=== PATIENT | female | born 1995 | race American Indian/Alaskan Native ===

== ENCOUNTER 2018-09-10 17:48 | Emergency (ER) | payer SELFPAY ==
[2018-09-10 18:34] LABS: BASO % 0.2 % (0.0-1.0); EOS # 0.1 10^3/uL (0.0-0.50); EOS % 0.7 % (0.0-3.0); HEMATOCRIT 33.9 % (36.0-47.0); HEMOGLOBIN 11.4 g/dl (12.0-15.5); IMMATURE GRANULOCYTE % 0.7 % (0-3.0); LYMPH # 2.2 10^3/uL (1.5-6.5); MEAN CORPUSCULAR HEMOGLOBIN 30.2 pg (27.0-33.0); MEAN CORPUSCULAR HGB CONC 33.6 g/dl (32.0-36.5); MEAN CORPUSCULAR VOLUME 89.9 fl (80.0-96.0); MONO # 0.9 10^3/uL (0.0-0.8); MONO % 7.5 % (0.0-5.0); NEUTROPHILS # 8.9 10^3/uL (1.8-7.7); NEUTROPHILS % 72.9 % (36.0-66.0); PLATELET COUNT, AUTOMATED 282 10^3/uL (150-450); RED BLOOD COUNT 3.77 10^6/uL (4.00-5.40); RED CELL DISTRIBUTION WIDTH 13.7 % (11.5-14.5); WHITE BLOOD COUNT 12.2 10^3/uL (4.0-10.0)
[2018-09-10 18:38] LABS: KETONE, URINE AUTO RFX TRACE mg/dL (NEGATIVE); MUCUS, URINE RFX MODERATE (NEGATIVE); NITRITE, URINE AUTO RFX NEGATIVE (NEGATIVE); RBC, URINE AUTO RFX 4 /HPF (0-3); SPECIFIC GRAVITY UR AUTO RFX 1.018 (1.002-1.035); SQUAM EPITHELIAL CELL UR AURFX 2 /HPF (0-6)
[2018-09-10 18:39] LABS: LEUKOCYTE ESTERASE UR AUTO RFX 1+ (NEGATIVE); WBC, URINE AUTO RFX 29 /HPF (0-3)
[2018-09-10 18:46] LABS: PROTHROMBIN TIME 13.3 SECONDS (12.1-14.4)
[2018-09-10 18:47] LABS: CONTROL LINE HCG INT CTR LINE PRESENT; HCG, SERUM QUALITATIVE POSITIVE (NEGATIVE); PARTIAL THROMBOPLASTIN TIME 27.6 SECONDS (25.4-37.6)
[2018-09-10 18:57] LABS: ALBUMIN 3.4 GM/DL (3.2-5.2); ALBUMIN/GLOBULIN RATIO 0.85 (1.00-1.93); ALKALINE PHOSPHATASE 63 U/L (45-117); ALT/SGPT 27 U/L (12-78); AMYLASE 61 U/L (25-115); ANION GAP 8 MEQ/L (8-16); AST/SGOT 17 U/L (7-37); BILIRUBIN,DIRECT < 0.1 MG/DL (0.0-0.2); BILIRUBIN,TOTAL 0.3 MG/DL (0.2-1.0); BLOOD UREA NITROGEN 10 MG/DL (7-18); CALCIUM LEVEL 8.2 MG/DL (8.5-10.1); CARBON DIOXIDE LEVEL 24 MEQ/L (21-32); CHLORIDE LEVEL 106 MEQ/L (98-107); CREATININE FOR GFR 0.55 MG/DL (0.55-1.30); GLOMERULAR FILTRATION RATE > 60.0 (>60); GLUCOSE, FASTING 81 MG/DL (70-100); LIPASE 149 U/L (73-393); POTASSIUM SERUM 3.9 MEQ/L (3.5-5.1); SODIUM LEVEL 138 MEQ/L (136-145); TOTAL PROTEIN 7.4 GM/DL (6.4-8.2)
[2018-09-10 22:09] LABS: HCG, SERUM QUANTITATIVE 58842 MIU/ML
== END 2018-09-10 23:15 | disposition home or self-care (01) ==
LOC: M ED 17:48
DX: O23.31 Infections of other parts of urinary tract in pregnancy, first trimester (principal); Z3A.13 13 weeks gestation of pregnancy
CPT/HCPCS: 76801

== ENCOUNTER → 2018-10-22 | Outpatient (CLI) | payer SELFPAY ==
[2018-10-22 17:50] LABS: BASO # 0.1 10^3/uL (0.0-0.2); BASO % 0.5 % (0.0-1.0); EOS # 0.1 10^3/uL (0.0-0.50); EOS % 0.8 % (0.0-3.0); HEMATOCRIT 29.8 % (36.0-47.0); HEMOGLOBIN 9.8 g/dl (12.0-15.5); IMMATURE GRANULOCYTE % 0.4 % (0-3.0); LYMPH # 1.8 10^3/uL (1.5-6.5); MEAN CORPUSCULAR HEMOGLOBIN 29.9 pg (27.0-33.0); MEAN CORPUSCULAR HGB CONC 32.9 g/dl (32.0-36.5); MEAN CORPUSCULAR VOLUME 90.9 fl (80.0-96.0); MONO # 0.7 10^3/uL (0.0-0.8); MONO % 7.1 % (0.0-5.0); NEUTROPHILS # 7.5 10^3/uL (1.8-7.7); NEUTROPHILS % 73.2 % (36.0-66.0); PLATELET COUNT, AUTOMATED 317 10^3/uL (150-450); RED BLOOD COUNT 3.28 10^6/uL (4.00-5.40); WHITE BLOOD COUNT 10.2 10^3/uL (4.0-10.0)
[2018-10-22 23:10] LABS: CHLAMYDIA DNA AMPLIFICATION NEGATIVE (NEGATIVE); GC DNA AMPLIFICATION NEGATIVE (NEGATIVE)
[2018-10-24 13:58] LABS: HBsAg Prenatal NEGATIVE (NEGATIVE); HIV 1&2 SCREEN CENTAUR NEGATIVE (NEGATIVE); RUBELLA IgG QUALITATIVE IMMUNE (IMMUNE)
[2018-10-24 13:58] LABS: HEPATITIS C VIRUS ABY INDEX 0.1 INDEX (<0.8)
== END ==
LOC: M SMT 15:28
DX: Z34.82 Encounter for supervision of other normal pregnancy, second trimester (principal); Z3A.19 19 weeks gestation of pregnancy
CPT/HCPCS: 86762

== ENCOUNTER → 2018-11-14 | Outpatient (CLI) | payer OTHER ==
[~2018-11-14] MED LIST: MACR100C43 PO
--- NOTE | 2018-11-14 17:21 | REP ---
Clinical: Anatomical evaluation. Comparison: 09/10/2018 . Findings: Examination demonstrates a single live intrauterine in cephalic presentation. motion is identified by technologist. Placenta is noted an anterior and grade grade zero without evidence for placenta previa or abruption. Amniotic fluid volume is normal. Cervix measures 5.0 cm in length and appears closed. No evidence for nuchal cord. Gestational age by LMP 23 weeks 1 day with KELL 03/12/2019 . Gestational age by current measurements 23 weeks 0 days with KELL 03/13/2019 . FHR equals 136 beats per minute. BPD 5.7 cm 23 weeks 3 days HC 21.8 cm 23 weeks 6 days AC 18.6 cm 23 weeks 3 days FL 4.0 cm 22 weeks 6-day HL 3.8 cm 23 weeks 3-day HC/AC ratio 1.17 Estimated weight 577 grams ( 50th percentile). Anatomical assessment demonstrates normal structures including cranium, choroid plexus, cavum, cerebellum/posterior fossa, facial features, lungs, four-chamber heart/ventricular outflow tracts, diaphragm, stomach, cord insertion/three-vessel cord, kidneys/bladder, spine, and extremities. Impression: Single live intrauterine in cephalic presentation demonstrating appropriate interval growth. Anatomical assessment is complete and within normal limits. Electronically Signed by Mark Diane MD 11/14/2018 05:12 P
== END ==
LOC: M RAD 10:25
PROVIDERS: ATTEND Advanced Practice Midwife
DX: Z34.82 Encounter for supervision of other normal pregnancy, second trimester (principal); Z3A.19 19 weeks gestation of pregnancy

== ENCOUNTER 2019-03-18 08:41 | Inpatient (IN) | payer OTHER ==
[2019-03-18] VITALS (34 sets, daily range): BP systolic 85–137; BP diastolic 50–89
[~2019-03-18] VITALS: Ht 154.9 cm; Wt 67.1 kg
[2019-03-18] MEDS ORDERED: IRON65TA2 PO (09:04)
[2019-03-18] MEDS ORDERED: PRENTAB9 PO (09:04)
[2019-03-18] MEDS ORDERED: VITA100T59 PO (09:04)
[2019-03-18] MEDS ORDERED: LACTATED RINGER'S 1000 ML IV STA (10:18)
[2019-03-18] MEDS: LR 1,000 ML IV SCH ×3 (11:05→16:33)
[2019-03-18 11:06] LABS: HEMATOCRIT 35.2 % (36.0-47.0); HEMOGLOBIN 11.4 g/dl (12.0-15.5); MEAN CORPUSCULAR HGB CONC 32.4 g/dl (32.0-36.5); MEAN CORPUSCULAR VOLUME 86.5 fl (80.0-96.0); PLATELET COUNT, AUTOMATED 256 10^3/uL (150-450); RED BLOOD COUNT 4.07 10^6/uL (4.00-5.40); WHITE BLOOD COUNT 12.3 10^3/uL (4.0-10.0)
[2019-03-18] MEDS ORDERED: FENTANYL 2MCG/ML ROPIVACAINE 0.2% IN 0.9% NACL 100ML IVBAG As Ordered ONE (12:03)
--- NOTE | 2019-03-18 12:33 | HPEPDOC ---
Obstetrical History & Physical General Date of Admission Mar 18, 2019 at 10:16 History of Present Illness 23 y/o at 40+6 with painful reg ctx's. No LOF, some mucousy blood tinged D/C. Pos FM. Preg c/b late entry to care, not seen here until 31 weeks, prior had only an US at 13 weeks, anatomy scan done at [facility] 19DEC Chief Complaint: Contractions, term Information Provided By: Patient Care Care: Limited Care Dating Final EDC by: LMP (13 wk US) Past Medical History Past Obstetrical History : Past Obstetrical History: Primgravida Past Medical History Surgical History: Denies/None Family History Significant Family History: No pertinent family hx Social History Marital Status: Family situation: Spouse/partner home Psychosocial History: No pertinent psych hx * Smoker: non-smoker Alcohol: Denies Drugs: denies Abuse Violence Screening Have you been hit/kicked/slapp: No Have you been sexually assault: No Imunizations Tdap status: declined Influenza Status: current Allergies Coded Allergies: No Known Allergies (Unverified , 09/10/18) Medications Scheduled Ascorbic Acid (Vitamin C) 100 Mg Tablet, 1 TAB PO DAILY Ferrous Sulfate (Iron) 325 Mg Tablet, 1 TAB PO DAILY No.137/Iron/Folic Acd ( Vitamin Tablet) 1 Each Tablet, 1 TAB PO DAILY Physical Examination Physical Examination GENERAL: Alert and oriented times three. ABDOMEN: Gravid and non-tender to touch. FETUS: Is vertex (VTX) by sterile vaginal examination (SVE), at 1000 was 4/90/- 1/vtx well applied EXTREMITIES: No edema. Vital Signs/I&O Vital Signs Date Time Temp Pulse Resp B/P (MAP) Pulse Ox O2 Delivery O2 Flow Rate FiO2 03/18/19 11:58 99.5 88 20 97 Room Air Laboratory Data 24H LABS Laboratory Tests 2 03/18/19 10:22: Serology Scanned Report Hepatitis B Testing 03/18/19 10:42: Nucleated Red Blood Cells % (auto) 0.0 CBC/BMP Laboratory Tests 03/18/19 10:42 Red Blood Count 4.07, Mean Corpuscular Volume 86.5, Mean Corpuscular Hemoglobin 28.0, Mean Corpuscular Hemoglobin Concent 32.4, Red Cell Distribution Width 20.4 H Urine Culture: No Growth Pertinent Laboratoy Data Blood Type: A+ RBC Antibody Screen: Negative HIV: Negative Hepatitis B: Negative Hepatitis C: Negative Rapid Plasma Reagin: Nonreactive Rubella: Immune Varicella: Immune Chlamydia/Gonorrhea: Negative Group B Streptococcus: Negative Quad Screen Test: Declined Cystic Fibrosis: Negative Anatomy Ultrasound Placenta Location: Anterior Normal Anatomy: Yes Placenta Previa: No Assessment Variability: Moderate Accelerations: Positive Decelerations: None Tocometer Contractions: Yes Frequency: regular Duration: greater than 60 seconds Strength: palpated as strong Assessment/Plan Assessment Active labor. Now requesting an epidural. RN just did a recheck and said was still 4 cm but now +1, my exam at 1000 was -1. Plan on recheck in a few hours after epidural and she achieves some rest. Plan Admit and orient. Recreation Activities Coordinator and consent. Diet: clr Group B Streptococcus (GBS) neg Labs and intravenous (IV) per unit protocol. Counseled on Pitocin and induction of labor (IOL). Lactated Ringers (LR): Bolus 1000 mL, then at 125 mL/hr. Anticipate normal spontaneous delivery () C-S as appropriate. Sessions MD WILSON,NATHAN Hernández MD Mar 18, 2019 12:33
[2019-03-18] MEDS ORDERED: ONDANSETRON 4MG/2ML VIAL (J2405) IV PRN (13:45)
[2019-03-18] MEDS ORDERED: REFRIGERATOR IV KEYS XX PRN (13:45)
[2019-03-18] MEDS ORDERED: EPIDURAL COMMENT XX SCH (13:45)
[2019-03-18] MEDS ORDERED: EPIDURAL/PCA KEYS XX PRN (13:45)
[2019-03-18] MEDS ORDERED: diphenhydrAMINE INJ 50MG/ML VIAL (J1200) IV PRN (13:45)
[2019-03-18] MEDS ORDERED: NALOXONE INJ 0.4 MG/1 ML VIAL (J2310) IV PRN (13:45)
[2019-03-18] MEDS ORDERED: FENTANYL/ROPIVACAINE/NACL BAG 100 ML EPIDURAL SCH (13:45)
[2019-03-18] MEDS ORDERED: LACTATED RINGER'S 1000 ML IV PRN (13:45)
[2019-03-18] MEDS: ePHEDrine SULFATE 25 MG/5 ML(5MG/ML) SYRINGE IV PRN ×3 (13:48→13:57)
[2019-03-18] MEDS ORDERED: ePHEDrine SULFATE 25 MG/5 ML(5MG/ML) SYRINGE IV PRN (16:30)
[2019-03-18] MEDS ORDERED: ACETAMINOPHEN TAB 650MG DOSE (2X325MG) PO ONE (18:00)
--- NOTE | 2019-03-18 18:13 | IPNPDOC ---
Text Note Date of Service The patient was seen on 03/18/19. NOTE RN has kept me abreast of progress SROM this afternoon Epidural placed and had some late decels from BP issues, treated with ephedrine several times Cx change also throughout the afternoon, was 8 cm at 1600 NST now Cat 2 with accels, mod aditya, some possible late/variables intermittently Cx with a small but slightly swollen ant lip reduced with a few pushes, MARY, +2 station Pushing. Will recheck in 1 hour. Sessions VS,Bess, I+O VSBess I+O Laboratory Tests 03/18/19 10:42 Red Blood Count 4.07, Mean Corpuscular Volume 86.5, Mean Corpuscular Hemoglobin 28.0, Mean Corpuscular Hemoglobin Concent 32.4, Red Cell Distribution Width 20.4 H Vital Signs Date Time Temp Pulse Resp B/P (MAP) Pulse Ox O2 Delivery O2 Flow Rate FiO2 03/18/19 14:56 99.4 101 20 109/64 (79) 03/18/19 11:58 97 Room Air SESSIONS,NATHAN Hernández MD Mar 18, 2019 18:13
[2019-03-18] MEDS ORDERED: OXYTOCIN DRIP 30 UNITS in APPROPRIATE DILUENT 1 EA IV SCH (19:14)
[2019-03-18] MEDS ORDERED: ACETAMINOPHEN TAB 650MG DOSE (2X325MG) PO PRN (19:15)
[2019-03-18] MEDS ORDERED: DIBUCAINE 1% OINTMENT 30GM TOP PRN (19:15)
[2019-03-18] MEDS ORDERED: IBUPROFEN 800 MG TAB PO PRN (19:15)
[2019-03-18] MEDS ORDERED: RHOGAM 300 MCG (1500 IU) INJ (J2790) IM SCH (19:15)
[2019-03-18] MEDS ORDERED: MEASLES,MUMPS,RUBELLA VACCINE INJ (MMR-II) (90707) SC SCH (19:15)
[2019-03-18] MEDS ORDERED: METOCLOPRAMIDE INJ 10MG/2ML VIAL (J2765) IV PRN (19:15)
--- NOTE | 2019-03-18 19:28 | DNPDOC ---
[facility] Delivery Note Delivery Note DATE OF DELIVERY: [id number] PREDELIVERY DIAGNOSIS: 40 6/7 weeks' gestation and labor. POST DELIVERY DIAGNOSIS: Delivered. PROCEDURE: Spontaneous vaginal delivery HANDLE MACHINE OPERATOR: Dr. Wilson ANESTHESIA: epidural ESTIMATED BLOOD LOSS: 200 mL. FINDINGS: 7 pound 8 ounce male , Score 8/9, nuchal cord times 1, loose and not reduced. DELIVERY SUMMARY: Pushed very well, <1 hr. Right before delivery had an oral Temp >100.4, but no tachycardia ever, therefore no dx of chorio. Del'd the vtx ROP with mod'd ritgen assist, rotated to ROT. Loose nuchal noted but ant shoulder del'd before I could reduce it. Vigorous to abd. Good tone and cry. Cord C/C. Cord blood. Placenta del'd intact, fundus firm with pit going 999 and massage. Two small lacs to right inner labia and post vagina both closed with 3-0 vicryl, per and cx intact. Uncomplicated. Tiffany WILSON,NATHAN Hernández MD Mar 18, 2019 19:28
[2019-03-18] MEDS: DOCUSATE SODIUM 100 MG CAP PO SCH (21:45)
[2019-03-19 06:00] VITALS: BP 108/62
--- NOTE | 2019-03-19 06:03 | IPNPDOC ---
Text Note Date of Service The patient was seen on 03/19/19. NOTE PPD1 States feeling well, pain controlled with prescribed meds. Baby bonding and feeding well. No heavy VB. Lochia slowing. Ambulatory. Tolerating PO without issues. Voiding spont. No CP/LP. VSSAF NAD A&O LE no C/C/E Ut at U-1, firm a/p: Doing well. Cont routine care. D/C likely tomorrow. Sessions Bess PINEDA, I+O Bess PICHARDO I+O Laboratory Tests 03/18/19 10:42 Red Blood Count 4.07, Mean Corpuscular Volume 86.5, Mean Corpuscular Hemoglobin 28.0, Mean Corpuscular Hemoglobin Concent 32.4, Red Cell Distribution Width 20.4 H Vital Signs Date Time Temp Pulse Resp B/P (MAP) Pulse Ox O2 Delivery O2 Flow Rate FiO2 03/18/19 21:40 99.3 110 16 116/68 (84) 97 03/18/19 11:58 Room Air I&O- Last 24 Hours up to 6 AM 03/19/19 06:00 Intake Total 2956.3 ml Output Total 1125 ml Balance 1831.3 ml SESSIONS,NATHAN Hernández MD Mar 19, 2019 06:03
[2019-03-19] MEDS ORDERED: ADACEL/BOOSTRIX VACCINE (DIPHTH/PERTUSS/ACELL/TETANUS)0.5ML SYR (90715) IM ONE (09:00)
[2019-03-19] MEDS: DOCUSATE SODIUM 100 MG CAP PO SCH ×2 (09:40→21:54)
[2019-03-19] MEDS: PRENATAL VITAMINS CHEWABLE TABLET PO SCH (09:40)
[2019-03-19 10:00] VITALS: BP 112/70
[2019-03-19 18:01] VITALS: BP 111/70
[2019-03-20 06:13] VITALS: BP 113/67
[2019-03-20] MEDS ORDERED: IBUP-1114 PO (07:53)
[2019-03-20] MEDS ORDERED: PRENTAB9 PO (07:53)
[2019-03-20] MEDS ORDERED: COLA100C5 PO (07:53)
[2019-03-20] MEDS ORDERED: NUPE10OI TOP (07:53)
[2019-03-20] MEDS: PRENATAL VITAMINS CHEWABLE TABLET PO SCH (10:13)
[2019-03-20] MEDS: DOCUSATE SODIUM 100 MG CAP PO SCH (10:13)
--- NOTE | 2019-03-21 09:37 | DSES ---
DATE OF ADMISSION: 03/18/2019 DATE OF DISCHARGE: 03/20/2019 23-year-old, 1, now para 1, admitted at 46 weeks of gestation with contractions and had spontaneous vaginal delivery live male , 7 pounds 8 ounces, score of 8 and 9 at one and five minutes respectively. On her second day, we discussed phlebitis, cystitis, mastitis, endometritis and cellulitis, diet, exercise, pain management, perineal, breast and wound care. Admitting hemoglobin 11.4, hematocrit 35.2 and platelets were 256. Vital signs on discharge: Blood pressure 113/67, respirations 16, pulse 70, temperature is 98.4. The rest examination is unremarkable. Normocephalic, atraumatic. Neck full range of motion. Pupils equal and reactive to light. Distal pulses symmetric. No evidence of deep venous thrombosis (DVT), pulmonary embolism (PE), or superficial phlebitis. Chest is clear bilaterally at bases. No wheezes or rhonchi. No costovertebral angle (CVA) tenderness. Abdomen soft. Uterus 2 below. Lochia is moderate. Four quadrant bowel sounds are noted. Perineum is intact. She has no rashes, lesions or pruritus. No arthralgia, myalgia. No complaint joint pain. No cough, wheeze, shortness of breath or dyspnea on exertion. She has no incontinence, urgency or frequency. No nausea, vomiting, diarrhea or constipation. In summary, we have a term gestation delivered a live male . Plan: Discharge medications dispensed at discharge and 6-week checkup at [facility], at which time, control will be discussed. All questions were answered.
== END 2019-03-20 12:25 | disposition home or self-care (01) | DRG 807 ==
LOC: M LDO 08:41 → M LDI 10:16 → M OBS 21:07
PROVIDERS: ADMIT Obstetrics & Gynecology; ATTEND Obstetrics & Gynecology
PROC: 10E0XZZ Delivery of Products of Conception, External Approach (ICD-10-PCS; principal; 2019-03-18)
PROC: 0HQ9XZZ Repair Perineum Skin, External Approach (ICD-10-PCS; 2019-03-18)
DX: O48.0 Post-term pregnancy (principal); Z37.0 Single live birth; O09.31 Supervision of pregnancy with insufficient antenatal care, first trimester; O09.32 Supervision of pregnancy with insufficient antenatal care, second trimester; O09.33 Supervision of pregnancy with insufficient antenatal care, third trimester; Z3A.40 40 weeks gestation of pregnancy; O69.82X0 Labor and delivery complicated by other cord entanglement, without compression, not applicable or unspecified; O70.0 First degree perineal laceration during delivery

== ENCOUNTER 2019-10-12 16:20 | Emergency (ER) | payer OTHER ==
[~2019-10-12] VITALS: Ht 154.9 cm; Wt 52.6 kg
[~2019-10-12 16:20] MED LIST changes: +COLA100C5 PO; +IBUP-1114 PO; +IRON65TA2 PO; +NUPE10OI TOP; +PRENTAB9 PO; +VITA100T59 PO
[2019-10-12 16:21] VITALS: BP 114/67
[2019-10-12] MEDS ORDERED: LIDOCAINE 1% MDV 20ML VIAL SC ONE (17:15)
== END 2019-10-12 17:51 | disposition home or self-care (01) ==
LOC: M ED 16:20
DX: O99.712 Diseases of the skin and subcutaneous tissue complicating pregnancy, second trimester (principal); T16.2XXA Foreign body in left ear, initial encounter

== ENCOUNTER 2020-06-02 21:34 | Inpatient (IN) | payer OTHER ==
[~2020-06-02] VITALS: Ht 154.9 cm; Wt 67.3 kg
[2020-06-02 22:13] LABS: HEMOGLOBIN 12.2 g/dl (12.0-15.5); MEAN CORPUSCULAR HEMOGLOBIN 27.8 pg (27.0-33.0); MEAN CORPUSCULAR HGB CONC 32.1 g/dl (32.0-36.5); MEAN CORPUSCULAR VOLUME 86.6 fl (80.0-96.0); PLATELET COUNT, AUTOMATED 220 10^3/uL (150-450); RED BLOOD COUNT 4.39 10^6/uL (4.00-5.40); WHITE BLOOD COUNT 13.7 10^3/uL (4.0-10.0)
--- NOTE | 2020-06-02 22:17 | HPEPDOC ---
Obstetrical History & Physical General Date of Admission Jun 02, 2020 at 21:51 History of Present Illness Mrs. Tatum is a 25-year-old 2, para 1 presents at 40 weeks 3 days estimated gestational age by first trimester ultrasound, complaints of contractions. She reports active movements. Denies any vaginal bleeding or leakage fluid. course has been unremarkable. She initiated care first trimesters been appropriate throughout. Chief Complaint: Contractions, term Information Provided By: Patient Age: 25 : 2 Livin Care Care: Good Care Dating Final EDC: May 30, 2020 Final EDC by: 1st trimester (US) EGA at Admission: 40 Past Medical History Past Obstetrical History : Past Obstetrical History: Multigravida Date of Delivery: Mar 18, 2009 Type of Delivery: Spontaneous Vaginal Del. Sex of : Male Past Medical History Surgical History: Denies/None Family History Significant Family History: No pertinent family hx Social History Marital Status: Family situation: Spouse/partner home Psychosocial History: No pertinent psych hx * Smoker: non-smoker Alcohol: Denies Drugs: denies Allergies Coded Allergies: No Known Allergies (Unverified , 09/10/18) Medications Scheduled No.137/Iron/Folic Acd ( Vitamin Tablet) 1 Each Tablet, 1 TAB PO DAILY Physical Examination Physical Examination GENERAL: Alert and oriented times three. BREAST: . ABDOMEN: Gravid and non-tender to touch. FETUS: Is vertex (VTX) by sterile vaginal examination (SVE), fetus is vertex (VTX) by Rodney. HEART RATE: Regular rate and rhythm. LUNGS: Clear to auscultation (CTA). Pertinent Laboratoy Data Blood Type: A+ RBC Antibody Screen: Negative HIV: Negative Rapid Plasma Reagin: Nonreactive Rubella: Immune Chlamydia/Gonorrhea: Negative Group B Streptococcus: Negative Anatomy Ultrasound Ultrasound Date: Jan 28, 2020 Placenta Location: Anterior Normal Anatomy: Yes Vaginal Examination Dilation: 5 cm Effacement: 80% Station: -2 Cervical Consistency: Soft Cervical Position: Middle Presentation: Cephalic presentation Assessment Variability: Moderate Accelerations: Positive Tocometer Contractions: Yes Frequency: regular Assessment/Plan Assessment 25-year-old 2, para 1 at 40 weeks and 3 days estimated gestational age here in active labor. Reassuring status Plan Admit and orient. Apprentice Carpenter and consent. Group B Streptococcus (GBS) negative. Labs and intravenous (IV) per unit protocol. Counseled on Pitocin and induction of labor (IOL). Anticipate normal spontaneous delivery (). C-S as appropriate. JEREMI PATEL MD. Jun 02, 2020 22:17
[2020-06-02] MEDS ORDERED: FENTANYL 2MCG/ML ROPIVACAINE 0.2% IN 0.9% NACL 100ML IVBAG As Ordered ONE (22:41)
[2020-06-02] MEDS ORDERED: EPIDURAL COMMENT XX SCH (22:50)
[2020-06-02] MEDS ORDERED: diphenhydrAMINE 50MG/ML VIAL (J1200) IV PRN (22:50)
[2020-06-02] MEDS ORDERED: FENTANYL/ROPIVACAINE/NACL BAG 100 ML EPIDURAL SCH (22:50)
[2020-06-02] MEDS ORDERED: LACTATED RINGER'S 1000 ML IV PRN (22:50)
[2020-06-02] MEDS ORDERED: NALOXONE INJ 0.4MG/1ML VIAL (J2310 PER 1MG) IV PRN (22:50)
[2020-06-02] MEDS ORDERED: ePHEDrine SULFATE 25 MG/5 ML(5MG/ML) SYRINGE IV PRN (22:50)
[2020-06-02] MEDS ORDERED: EPIDURAL/PCA KEYS XX PRN (22:50)
[2020-06-02] MEDS ORDERED: REFRIGERATOR IV KEYS XX PRN (22:50)
[2020-06-02] MEDS ORDERED: ONDANSETRON 4MG/2ML VIAL IV PRN (22:50)
[2020-06-02] MEDS ORDERED: OXYTOCIN 30 UNITS IN 0.9% NaCl 500ML IV BAG (J2590) As Ordered ONE (23:39)
[2020-06-02] MEDS ORDERED: ePHEDrine SULFATE 25 MG/5 ML(5MG/ML) SYRINGE As Ordered ONE (23:47)
--- NOTE | 2020-06-03 01:11 | DNPDOC ---
[facility] Delivery Note Delivery Note DATE OF DELIVERY: 06/03/2020 TIME OF : 0045 GENDER: Female. APGARS: 9 and 9. WEIGHT: 4150 grams or 9 pounds 2 ounces. LACERATIONS: None ANESTHESIA: Epidural. ESTIMATED BLOOD LOSS: 300ml COUNTS: 5 laparotomy sponges accounted for prior to after delivery. DELIVERY NOTE: On 06/03/2020 at 00 45, , had a spontaneous vaginal delivery of viable female infant, Apgars 9 and 9. Weight was, 4150 g or 9 lbs. 2 oz. Head was delivered occiput posterior (OP), followed by delivery of the shoulders and corpus. Infant was handed to mom with a good cry. Cord was clamped times two and was cut by the father of baby under my direction. Placenta was then drained and delivered grossly intact. A premixed bag of 500 mL of normal saline with 30 units of Pitocin was then bolused along with uterine massage until the uterus was firm. On inspection, cervix, vagina, perineum was grossly intact and hemostatic. Mom and baby in recovery on stable condition. JEREMI PATEL MD. Jun 03, 2020 01:11
[2020-06-03] MEDS ORDERED: ACETAMINOPHEN TAB 650MG DOSE (2X325MG) PO PRN (01:15)
[2020-06-03] MEDS ORDERED: ANUSOL HC CREAM 30GM TOP PRN (01:15)
[2020-06-03] MEDS ORDERED: DIBUCAINE 1% OINTMENT 30GM TOP PRN (01:15)
[2020-06-03] MEDS ORDERED: IBUPROFEN 600MG TAB PO PRN (01:15)
[2020-06-03] MEDS ORDERED: METHYLERGONOVINE MALEATE 0.2 MG TAB PO PRN (01:15)
[2020-06-03] MEDS ORDERED: DOCUSATE SODIUM 100 MG CAP PO PRN (01:15)
[2020-06-03] MEDS ORDERED: IBUPROFEN 800 MG TAB PO PRN (01:15)
[2020-06-03] MEDS ORDERED: MOM 30ML SUSPENSION UDC PO PRN (01:15)
[2020-06-03] MEDS ORDERED: OXYTOCIN INJ 10 UNITS/ML VIAL (J2590) IM ONE (01:15)
[2020-06-03] MEDS ORDERED: RHOGAM 300 MCG (1500 IU) INJ (J2790) IM SCH (01:15)
[2020-06-03] MEDS ORDERED: MEASLES,MUMPS,RUBELLA VACCINE INJ (MMR-II) (90707) SC SCH (01:15)
[2020-06-03 03:19] VITALS: BP 112/70
[2020-06-03 05:29] VITALS: BP 109/65
[2020-06-03] MEDS: PRENATAL VITAMINS CHEWABLE TABLET PO SCH (10:26)
[2020-06-03] MEDS: ACETAMINOPHEN 500 MG TAB PO PRN (11:44)
[2020-06-03 18:00] VITALS: BP 99/59
[2020-06-04 05:38] VITALS: BP 103/57
[2020-06-04] MEDS: PRENATAL VITAMINS CHEWABLE TABLET PO SCH (08:23)
[2020-06-04] MEDS: ACETAMINOPHEN 500 MG TAB PO PRN (08:24)
== END 2020-06-04 14:15 | disposition home or self-care (01) | DRG 807 ==
LOC: M LDO 21:34 → M LDI 21:51 → M OBS 06-03 03:06
PROVIDERS: ADMIT Obstetrics & Gynecology; ATTEND Obstetrics & Gynecology
PROC: 10E0XZZ Delivery of Products of Conception, External Approach (ICD-10-PCS; principal; 2020-06-03)
DX: O48.0 Post-term pregnancy (principal); Z37.0 Single live birth; Z3A.40 40 weeks gestation of pregnancy

== ENCOUNTER 2021-05-21 13:57 | Outpatient (CLI) | payer OTHER, SELFPAY ==
[~2021-05-21] VITALS: Ht 154.9 cm; Wt 65.7 kg
[2021-05-21 14:13] VITALS: BP 100/63
[2021-05-21] MEDS ORDERED: VALT1TAB PO (14:20)
[2021-05-21] MEDS ORDERED: HOME MED LIST COMPLETE! XX SCH (14:25)
[2021-05-21 17:46] VITALS: BP 107/68
== END 2021-05-21 17:50 | disposition home or self-care (01) ==
LOC: M LDO 13:57
PROVIDERS: ATTEND Registered Nurse
DX: O9A.213 Injury, poisoning and certain other consequences of external causes complicating pregnancy, third trimester (principal); Z3A.38 38 weeks gestation of pregnancy; S30.1XXA Contusion of abdominal wall, initial encounter; X58.XXXA Exposure to other specified factors, initial encounter; Y92.9 Unspecified place or not applicable
CPT/HCPCS: 59025; 76815; G0378; G0463

== ENCOUNTER 2021-05-23 03:55 | Inpatient (IN) | payer OTHER ==
[~2021-05-23] VITALS: Ht 154.9 cm; Wt 69.0 kg
[2021-05-23] VITALS (28 sets, daily range): BP systolic 89–197; BP diastolic 51–134
[~2021-05-23 03:55] MED LIST changes: +VALT1TAB PO
[2021-05-23] MEDS ORDERED: OXYTOCIN INJ 10 UNITS/ML VIAL (J2590) IV PRN (04:15)
[2021-05-23] MEDS ORDERED: LACTATED RINGER'S 1000 ML IV ONE (04:15)
[2021-05-23] MEDS ORDERED: LR 1,000 ML IV SCH (04:15)
[2021-05-23 04:42] LABS: HEMATOCRIT 37.9 % (36.0-47.0); HEMOGLOBIN 12.6 g/dl (12.0-15.5); MEAN CORPUSCULAR HEMOGLOBIN 29.9 pg (27.0-33.0); MEAN CORPUSCULAR HGB CONC 33.2 g/dl (32.0-36.5); PLATELET COUNT, AUTOMATED 218 10^3/uL (150-450); RED BLOOD COUNT 4.21 10^6/uL (4.00-5.40); WHITE BLOOD COUNT 12.3 10^3/uL (4.0-10.0)
[2021-05-23] MEDS ORDERED: OXYTOCIN DRIP 30 UNITS in IV 1 EA IV PRN (05:00)
[2021-05-23] MEDS ORDERED: FENTANYL 2MCG/ML ROPIVACAINE 0.2% IN 0.9% NACL 100ML IVBAG As Ordered ONE (05:04)
[2021-05-23] MEDS ORDERED: ONDANSETRON 4MG/2ML VIAL IV PRN (05:08)
[2021-05-23] MEDS ORDERED: FENTANYL/ROPIVACAINE/NACL BAG 100 ML EPIDURAL SCH (05:08)
[2021-05-23] MEDS ORDERED: ePHEDrine SULFATE 25 MG/5 ML(5MG/ML) SYRINGE IV PRN (05:08)
[2021-05-23] MEDS ORDERED: LACTATED RINGER'S 1000 ML IV PRN (05:08)
[2021-05-23] MEDS ORDERED: NALOXONE INJ 0.4MG/1ML VIAL (J2310 PER 1MG) IV PRN (05:08)
[2021-05-23] MEDS ORDERED: EPIDURAL COMMENT XX SCH (05:08)
[2021-05-23] MEDS ORDERED: diphenhydrAMINE 50MG/ML VIAL (J1200) IV PRN (05:08)
[2021-05-23] MEDS ORDERED: EPIDURAL/PCA KEYS XX PRN (05:08)
[2021-05-23] MEDS ORDERED: REFRIGERATOR IV KEYS XX PRN (05:08)
--- NOTE | 2021-05-23 05:40 | HPEPDOC ---
Obstetrical History & Physical General Date of Admission May 23, 2021 at 04:10 Primary Care Physician: Darnell Francois MD History of Present Illness ACTIVE LABOR AT 38 WEEKS 2 DAYS HISTORY OF SHORT INTERVAL , HSV POSITIVE BLOOD NEGATIVE CULTURE . TAKING MEDICATION ONLY 2 DAYS NOW. NO RUPTURED MEMBRANES NO SHOW Chief Complaint: Contractions, term Information Provided By: Patient Age: 25 : 3 Term: 2 Pre-term: 0 Abortions: 0 Livin Care Care: Good Care Number of Visits: 8 Dating Final EDC: Jun 03, 2021 Final EDC for Daily Update: Jun 03, 2021 Final EDC by: LMP LMP: Aug 27, 2020 1st Trimester Date: Dec 17, 2020 Weeks + Days: 16.6 Estimated Date of Confinement: Jun 03, 2021 EGA at Admission: 38.2 Antepartum Course Diagnos(e)s ACTIVE LABOR AT TERM Height (inches): 61 Pre- weight (lbs.): 122 Admission Weight (lbs.): 145 Change in Weight (lbs.): 23 Past Medical History Past Obstetrical History #1: Past Obstetrical History: Multigravida Date of Delivery: Mar 18, 2019 Gestation: 40.6 Type of Delivery: Spontaneous Vaginal Del. Sex of : Male Weight of (grams): 3401.9 Complications: No Past Obstetrical History #2: Past Obstetrical History: Multigravida Date of Delivery: Jun 03, 2020 Gestation: 41 Type of Delivery: Spontaneous Vaginal Del. Sex of Infant: Female Weight of Infant (grams): 4139.03 Complications: No HEALTH CARE SANITARY TECHNICIAN History: No pertinent history, Other (UTI) Past Medical History Surgical History: Denies/None Family History Significant Family History: No pertinent family hx Social History Social history ACTIVE DUTY NO VIOLENCE Marital Status: Family situation: Spouse/partner home Psychosocial History: No pertinent psych hx * Smoker: non-smoker Alcohol: Denies Drugs: denies Abuse Violence Screening Have you been hit/kicked/slapp: No Have you been sexually assault: No Imunizations Tdap status: current Influenza Status: current Allergies Coded Allergies: No Known Allergies (Unverified , 09/10/18) Medications Scheduled No.137/Iron/Folic Acd ( Vitamin Tablet) 1 Each Tablet, 1 TAB PO DAILY Valacyclovir HCl (Valtrex) 1,000 Mg Tablet, 1 TAB PO BID Physical Examination Physical Examination GENERAL: Alert and oriented times three. BREAST: . ABDOMEN: Gravid and non-tender to touch. FETUS: Is vertex (VTX) by sterile vaginal examination (SVE), fetus is vertex (VTX) by Rodney. HEART RATE: Regular rate and rhythm. LUNGS: Clear to auscultation (CTA). EXTREMITIES: No edema. No clonus. Deep tendon reflexes (DTRs) + . Other physical findings SPECULUM EXAMINATION NO ACTIVE LESIONS SEEN CULTURE TAKEN Pertinent Laboratoy Data Blood Type: A+ RBC Antibody Screen: Negative HIV: Negative Hepatitis B: Negative Rapid Plasma Reagin: Nonreactive Rubella: Immune Varicella: Immune Chlamydia/Gonorrhea: Negative Group B Streptococcus: Negative Cystic Fibrosis: Negative Glucose Tolerance Test: 131 Anatomy Ultrasound Ultrasound Date: Feb 11, 2021 Placenta Location: Anterior Normal Anatomy: Yes Placenta Previa: No Estimated Weight (grams): 1350 Steroid Therapy Steroid Therapy: No Vaginal Examination Dilation: 6 cm Effacement: 80% Station: -3 Cervical Consistency: Soft Cervical Position: Middle Presentation: Cephalic presentation Position: Vertex (occiput) Assessment Variability: Moderate Accelerations: Positive Decelerations: None Tocometer Contractions: Yes Frequency: regular, every 1-3 min. Duration: less than 60 seconds Strength: palpated as moderate Assessment/Plan Assessment 25-year-old (G)3 para 2 at 38.2 weeks by 16.6 -week ultrasound. Presents to Labor and Delivery (L&D) . Plan Admit and orient. Heel Sprayer First and consent. Diet: NPO Group B Streptococcus (GBS) [negative]. Labs and intravenous (IV) per unit protocol. Counseled on Pitocin and induction of labor (IOL). Lactated Ringers (LR): Bolus 1000 mL, then at 125 mL/hr. Anticipate [normal spontaneous delivery ()]. C-S as appropriate. Labor and Delivery Counseling ACTIVE LABOR AT 38.2 WEEKS REVIEWED PLAN OF CARE EPIDURAL AND RODRIGUEZ CATHETER IN ANTICIPATION OF LGA PER US AT 32 WEEKS . REVIEWED SHOULDER DYSTOCIA PPH VAGINAL OR BLADDER OR RECTAL LACERATIONS AND REPAIR . POSSIBLE NICU ADMISSION RE SUGARS OR SHOULDER ISSUES . REVIEWED POSSIBLE NEED FOR BLOOD TRANSFUSION EXPRESSED UNDERSTANDING Darnell Francois MD May 23, 2021 04:56
--- NOTE | 2021-05-23 05:48 | IPNPDOC ---
Text Note Date of Service The patient was seen on 05/23/21. NOTE REVIEWED POST EPIDURAL 9 CM BULGING MEMBRANES Item Value Date Time White Blood Count 12.3 10^3/uL H 05/23/21 0436 Red Blood Count 4.21 10^6/uL 05/23/21 0436 Hemoglobin 12.6 g/dl 05/23/21 0436 Hematocrit 37.9 % 05/23/21 043 Mean Corpuscular Volume 90.0 fl 05/23/21 043 Mean Corpuscular Hemoglobin 29.9 pg 05/23/21 043 Mean Corpuscular Hemoglobin Concent 33.2 g/dl 05/23/21 043 Red Cell Distribution Width 13.5 % 05/23/21 043 Platelet Count 218 10^3/uL 05/23/21 0436 Immature Granulocyte % (Auto) 0.4 % 10/22/18 1529 Neutrophils (%) (Auto) 73.2 % H 10/22/18 1529 Lymphocytes (%) (Auto) 18.0 % L 10/22/18 1529 Monocytes (%) (Auto) 7.1 % H 10/22/18 1529 Eosinophils (%) (Auto) 0.8 % 10/22/18 1529 Basophils (%) (Auto) 0.5 % 10/22/18 1529 Neutrophils # (Auto) 7.5 10^3/uL 10/22/18 1529 Lymphocytes # (Auto) 1.8 10^3/uL 10/22/18 1529 Monocytes # (Auto) 0.7 10^3/uL 10/22/18 1529 Eosinophils # (Auto) 0.1 10^3/uL 10/22/18 1529 Basophils # (Auto) 0.1 10^3/uL 10/22/18 1529 Nucleated Red Blood Cells % (auto) 0.0 % 05/23/21 0436 VS,Ivane, I+O VS, Julesbone, I+O Laboratory Tests 05/23/21 04:36 Darnell Francois MD May 23, 2021 05:47
[2021-05-23 06:33] LABS: CORD GAS ABE A -0.4; CORD GAS ABE V -0.4; CORD GAS HCO3 A 27.7 MEQ/L; CORD GAS HCO3 V 24.6 MEQ/L; CORD GAS O2 SAT A 37.8 %; CORD GAS O2 SAT V 81.4 %; CORD GAS PCO2 A 59.4 mmHg; CORD GAS PCO2 V 41.6 mmHg; CORD GAS PH A 7.286 UNITS; CORD GAS PH V 7.389 UNITS; CORD GAS PO2 A 18.7 mmHg; CORD GAS SBC A 22.6 MEQ/L; CORD GAS SBC V 23.7 MEQ/L; CORD GAS TCO2 A 29.5 MEQ/L; CORD GAS TCO2 V 25.8 MEQ/L
[2021-05-23] MEDS ORDERED: DOCUSATE SODIUM 100MG CAPSULE PO PRN (06:40)
[2021-05-23] MEDS ORDERED: IBUPROFEN 600MG TAB PO PRN (06:40)
[2021-05-23] MEDS ORDERED: DIBUCAINE 1% OINTMENT 30GM TOP PRN (06:40)
[2021-05-23] MEDS ORDERED: METHYLERGONOVINE MALEATE 0.2 MG TAB PO PRN (06:40)
[2021-05-23] MEDS ORDERED: ACETAMINOPHEN TAB 650MG DOSE (2X325MG) PO PRN (06:40)
[2021-05-23] MEDS ORDERED: OXYTOCIN DRIP 30 UNITS in IV 1 EA IV ONE (06:40)
[2021-05-23] MEDS ORDERED: ANUSOL HC CREAM 30GM TOP SCH (06:40)
[2021-05-23] MEDS ORDERED: RHOGAM 300 MCG (1500 IU) INJ (J2790) IM SCH (06:40)
[2021-05-23] MEDS ORDERED: MEASLES,MUMPS,RUBELLA VACCINE INJ (MMR-II) (90707) SC SCH (06:40)
[2021-05-23] MEDS ORDERED: MOM 30ML SUSPENSION UDC PO PRN (06:40)
--- NOTE | 2021-05-23 06:55 | DNPDOC ---
[facility] Delivery Note Delivery Note Item Value Date Time Cord Arterial Blood pH 7.286 UNITS 05/23/21626 Cord Arterial Blood PCO2 59.4 mmHg 05/23/21626 Cord Arterial Blood PO2 18.7 mmHg 05/23/21626 Cord Arterial Blood HCO3 27.7 MEQ/L 05/23/21626 Cord Arterial Blood Total CO2 29.5 MEQ/L 05/23/21626 Cord Arterial Blood Base Excess -0.4 05/23/21626 Cord Arterial Base Excess (Standard 22.6 MEQ/L 05/23/21626 Cord Arterial Bld Oxygen Saturation 37.8 % 05/23/21626 Cord Venous Blood pH 7.389 UNITS 05/23/21626 Cord Venous Blood PO2 35.0 mmHg 05/23/21626 Cord Venous Blood PCO2 41.6 mmHg 05/23/21626 Cord Venous Blood HCO3 24.6 MEQ/L 05/23/21626 Cord Venous Blood Total CO2 25.8 MEQ/L 05/23/21626 Cord Venous Base Excess (Actual) -0.4 05/23/21626 Cord Venous Base Excess (Standard) 23.7 MEQ/L 05/23/21626 Cord Venous Blood Oxygen Saturation 81.4 % 05/23/21626 DATE OF DELIVERY: 05/23/2021 PREDELIVERY DIAGNOSIS: 38.3 weeks' gestation and labor. POST DELIVERY DIAGNOSIS: Delivered. PROCEDURE: [Spontaneous vaginal delivery/ section]. LINE ASSEMBLY UTILITY WORKER: Dr.e Francois ANESTHESIA: EPIDURAL ESTIMATED BLOOD LOSS: 200 mL. FINDINGS: 8 pound 3 ounce 3754 GRAMS MALE , Score 8/9 , . DELIVERY SUMMARY: Patient is a 26-year-old 3 now para 3 who was admitted to labor and delivery IN ACTIVE LABOR . EPIDURAL IN PLACE ROM CLEAR FLUID AT FULLY HAD INTACT PERINEUM, SPONTANEOUS PLACENTA INTACT 3 VESSELS . ANTERIOR POSTERIOR AND LATERAL TOSCANO INTACT SPHINCTER INTACT UTERUS CONTRACTED WELL DOWN WITH Darnell Martines MD May 23, 2021 06:52
[2021-05-23] MEDS: ACETAMINOPHEN 500 MG TAB PO PRN (09:17)
[2021-05-23] MEDS: PRENATAL VITAMINS CHEWABLE TABLET PO SCH (10:40)
[2021-05-24 06:00] VITALS: BP 111/64
[2021-05-24 07:20] LABS: HEMATOCRIT 34.7 % (36.0-47.0); HEMOGLOBIN 11.2 g/dl (12.0-15.5); MEAN CORPUSCULAR HEMOGLOBIN 29.9 pg (27.0-33.0); MEAN CORPUSCULAR HGB CONC 32.3 g/dl (32.0-36.5); MEAN CORPUSCULAR VOLUME 92.5 fl (80.0-96.0); PLATELET COUNT, AUTOMATED 190 10^3/uL (150-450); RED BLOOD COUNT 3.75 10^6/uL (4.00-5.40); WHITE BLOOD COUNT 10.8 10^3/uL (4.0-10.0)
[2021-05-24] MEDS: ACETAMINOPHEN 500 MG TAB PO PRN ×2 (07:37→22:14)
[2021-05-24] MEDS: PRENATAL VITAMINS CHEWABLE TABLET PO SCH (07:37)
[2021-05-24 18:00] VITALS: BP 121/83
--- NOTE | 2021-05-25 00:44 | IPNPDOC ---
Progress Note Date of Service: May 25, 2021 Day#: 2 Progress Note SUBJECT: Ms. Tatum is a 26yo PPD2 s/p 8 pound 3 ounce 3754 GRAMS MALE infant, Score 8/9 no complications. She has been ambulating, voiding spontaneously without issue and tolerating regular diet. Breast feeding without issue. Reports lochia is like a normal period. Patient is ambulating well. Reports some cramping with . Denies any pain. Voiding and stooling without difficulty. OBJECTIVE: VITAL SIGNS: Within normal limits, afebrile. Alert and oriented times three. No increased WOB Heart rate: non-tachycardic Abdomen: Fundus firm at U-2. Soft, NTTP. Minimal lochia per patient ASSESSMENT: Ms. Ttaum is a 26yo PPD2 s/p 8 pound 3 ounce 3754 GRAMS MALE , Score 8/9 no complications. Vitals within normal limits, afebrile, hemodynamically stable with no evidence of infection. PLAN: 1. Discharge to home today. 2. Tylenol and Motrin for pain. 3. Encourage breast feeding and ambulation. 4. Vasectomy is planned, patient reports will use condoms in interm 5. Routine PP visit in 6 weeks in clinic. 6. Discussed return precautions at length to include pelvic rest. VS, I&O, 24H, Fishbone Vital Signs/I&O Vital Signs Date Time Temp Pulse Resp B/P (MAP) Pulse Ox O2 Delivery O2 Flow Rate FiO2 05/24/21 18:00 97.2 70 17 121/83 (96) 99 Room Air Laboratory Data 24H LABS Laboratory Tests 2 05/24/21 06:59: Nucleated Red Blood Cells % (auto) 0.0 CBC/BMP Laboratory Tests 05/24/21 06:59 Microbiology Microbiology 05/23/21 Herpes Simplex Virus Culture, Received Pending ACE ORTIZ DO May 25, 2021 00:44
--- NOTE | 2021-05-25 00:47 | OBDS ---
[facility] Obstetrical Discharge Sum. A/P, Post Course List any complications SUBJECT: Ms. Tatum is a 26yo after a vaginal delivery of a 8 pound 3 ounce 3754 GRAMS MALE infant, Score 8/9 without complications. She had an uncomplicated antepartum course. She has been ambulating, voiding spontaneously without issue and tolerating regular diet. Breast feeding without issue. Reports lochia is like a normal period. Patient is ambulating well. Reports some cramping with . Denies any pain. Voiding and stooling without difficulty. Vitals within normal limits, afebrile, hemodynamically stable with no evidence of infection. PLAN: 1. Discharge to home today. 2. Tylenol and Motrin for pain. 3. Encourage breast feeding and ambulation. 5. Routine PP visit in 6 weeks in clinic. 6. Discussed return precautions at length to include pelvic rest. ACE ORTIZ DO May 25, 2021 00:47
[2021-05-25 06:00] VITALS: BP 122/81
[2021-05-25] MEDS: PRENATAL VITAMINS CHEWABLE TABLET PO SCH (08:40)
--- NOTE | 2021-05-25 11:23 | IPN ---
DAY #1 PROGRESS NOTE DATE: 05/24/2021 SUBJECTIVE: This lady is a 26-year-old 3, now para 3, who came in in spontaneous labor at 38 and 3 weeks of gestation. Epidural in place, spontaneous delivery of a male infant, 8 pounds 3 ounces (3754 grams), Apgars 8 and 9 at 1 and 5 minutes respectively. Arterial pH 7.28, base excess -0.4, venous pH 7.38, base excess -0.4. RISK FACTORS: She had short interval , large for gestational age and an HSV positive for blood but negative for culture. On her first day, we discussed phlebitis, cystitis, mastitis, endometritis, and cellulitis, diet, exercise, pain management, perineal, breast, and wound care. The rest of the examination unremarkable. Normocephalic, atraumatic. Neck full range of motion. Pupils equal and reactive to light. Distal pulses are symmetric. No evidence of DVT, PE or superficial phlebitis. Chest is clear bilaterally to bases. No wheezes or rhonchi. No CVA tenderness. Abdomen is soft, four quadrant bowel sounds are noted. Uterus two below. Lochia is moderate. Perineum is intact. No urgency or frequency. No nausea, vomiting, diarrhea or constipation. No stress urinary incontinence. VITALS: This morning, blood pressure 111/64, respirations 14, pulse 78, temp 97.6. LABS: Her admitting hemoglobin is 12.6, hematocrit 37.9 and platelets 218,000. day #1 hemoglobin is pending. IN SUMMARY: I have a term gestation delivered a live male . is going well. Anticipate discharge tomorrow. Medication pickup at [place]. Six-week checkup at [facility]. All questions were answered, 20-minute discussion.
[2021-05-26 15:08] LABS: HSV TYPE I IgM AB <1:10 titer (<1:10); HSV TYPE II IgG SPECIFIC <0.91 index (0.00-0.90); HSV TYPE II IgM ABY <1:10 titer (<1:10)
== END 2021-05-25 11:25 | disposition home or self-care (01) | DRG 807 ==
LOC: M LDO 03:55 → M LDI 04:10 → M OBS 10:18
PROVIDERS: ADMIT Obstetrics & Gynecology; ATTEND Obstetrics & Gynecology
PROC: 10E0XZZ Delivery of Products of Conception, External Approach (ICD-10-PCS; principal; 2021-05-23)
DX: O80 Encounter for full-term uncomplicated delivery (principal); Z37.0 Single live birth; Z3A.38 38 weeks gestation of pregnancy